=== PATIENT | female | born 1990 | race Caucasian/White ===

== ENCOUNTER 2024-11-06 13:34 | Emergency (ER) | payer MEDICAID, OTHER ==
[~2024-11-06] VITALS: Ht 157.5 cm; Wt 49.9 kg
[2024-11-06 19:01] VITALS: BP 88/74; TEMP 98.5; O2SAT 100
== END 2024-11-06 19:02 | disposition home or self-care (01) ==
LOC: ER 13:43
DX: R06.02 Shortness of breath (principal); R05.9 Cough, unspecified
CPT/HCPCS: 71045-TC